=== PATIENT | male | born 1960 | race Caucasian/White ===

== ENCOUNTER 2024-06-26 23:59 | Inpatient (IN) | payer BC, OTHER ==
[2024-06-27] MEDS ORDERED: ACETAMINOPHEN INJECTION 100 ML ONE (01:40)
[2024-06-27] MEDS: ACETAMINOPHEN 1000 MG/100 ML BAG IVPB ONE (01:53)
[2024-06-27] MEDS: LACTATED RINGERS SOLUTION 1000 ML INFUS.BAG IV ONE ×3 (01:53→08:28)
[2024-06-27 02:25] LABS: BASO % 0.3 % (0-2.0); EOS % 3.3 % (0-4.5); HEMATOCRIT 25.7 % (35.4-49); HEMOGLOBIN 7.9 GM/dL (11.7-16.9); LYMPH % 8.1 % (8-40); MCH 25.8 pg (25.7-33.7); MCHC 30.8 g/dl (32.0-35.9); MEAN CELL VOLUME 83.6 fl (80-96); MEAN PLT VOLUME 7.4 fl (7.5-11.1); MONO % 2.1 % (3.8-10.2); NEUT % 86.2 % (42.8-82.8); PLATELET COUNT 641 10^3/uL (134-434); RBC 3.08 M/mm3 (4.00-5.60); RDW 17.4 % (11.9-15.9)
[2024-06-27 02:41] LABS: VENOUS BASE EXCESS 5.3 mmol/L (-2-2); VENOUS O2 SATURATION 51.9 % (70-80); VENOUS PCO2 47.4 mmHg (38-52); VENOUS PH 7.421 (7.310-7.410)
[2024-06-27 02:45] LABS: INR 1.48 (0.83-1.09); PROTHROMBIN TIME (PATIENT) 16.5 SEC (9.7-13.0)
[2024-06-27 02:48] LABS: ACTIVATED PTT 32.1 SECONDS (25.2-36.5)
[2024-06-27 02:53] LABS: POTASSIUM 4.2 mmol/L (3.5-5.1)
[2024-06-27 02:57] LABS: ALBUMIN 1.3 g/dl (3.4-5.0); BLOOD UREA NITROGEN 40.5 mg/dL (7-18); CALCIUM 8.3 mg/dL (8.5-10.1)
[2024-06-27 03:00] LABS: CREATININE 0.7 mg/dL (0.55-1.3)
[2024-06-27 03:02] LABS: BILIRUBIN,TOTAL 0.2 mg/dL (0.2-1); TOT PROT 5.5 g/dl (6.4-8.2)
[2024-06-27 06:40] LABS: BASO % 0.4 % (0-2.0); EOS % 2.8 % (0-4.5); HEMOGLOBIN 7.3 GM/dL (11.7-16.9); LYMPH % 11.6 % (8-40); MCH 25.8 pg (25.7-33.7); MCHC 30.5 g/dl (32.0-35.9); MEAN CELL VOLUME 84.6 fl (80-96); MEAN PLT VOLUME 7.8 fl (7.5-11.1); MONO % 2.6 % (3.8-10.2); NEUT % 82.6 % (42.8-82.8); PLATELET COUNT 558 10^3/uL (134-434); RBC 2.84 M/mm3 (4.00-5.60); RDW 17.3 % (11.9-15.9); WHITE BLOOD COUNT 14.2 K/mm3 (4.0-10.0)
[2024-06-27 06:44] LABS: EPI CELLS 10 /uL (0-25.1); HYALINE CASTS 3 /uL (0-3.1); PH,URINE 5.5 (5.0-8.0); URINE APPEARANCE CLEAR; URINE BACTERIA 8 /uL (0-1359); URINE BILIRUBIN NEGATIVE (NEGATIVE); URINE COLOR YELLOW; URINE GLUCOSE (UA) NEGATIVE (NEGATIVE); URINE KETONE NEGATIVE (NEGATIVE); URINE LEUK ESTERASE 1+ (NEGATIVE); URINE NITRITE NEGATIVE (NEGATIVE); URINE PROTEIN 1+ (NEGATIVE); URINE RBC 11 /uL (0-23.9); URINE UROBILINOGEN 0.2 mg/dL (0.2-1.0); URINE WBC 112 /uL (0-25.8)
[2024-06-27] MEDS ORDERED: PIPERACILLIN/TAZOB 3.375 GM 3.375 GM/50 ML BAG IVPB ONE (08:04)
[2024-06-27] MEDS: PIPERACILLIN/TAZOB 3.375 GM 3.375 GM in DEXTROSE 5%-WATER - 50 ML IVPB ONE (08:10)
[2024-06-27] MEDS ORDERED: VANCOMYCIN 1 GRAM (PRE-DOCKED) 1,000 MG/250 ML BAG IVPB ONE (08:11)
[2024-06-27] MEDS: VANCOMYCIN 1,000 MG in DEXTROSE 5%-WATER - 250 ML IVPB ONE (08:28)
[2024-06-27 09:50] LABS: YEAST NONE SEEN (NEGATIVE)
[2024-06-27] MEDS: SODIUM CHLORIDE 1,000 ML IV SCH (10:27)
[2024-06-27] MEDS ORDERED: COLLAGENASE CLOSTRIDIUM HIST. 30 GRAMS TUBE TP SCH (11:00)
[2024-06-27] MEDS: FLUDROCORTISONE ACETATE 0.1 MG TABLET (FP) PO SCH (12:30)
[2024-06-27] MEDS: ACETAMINOPHEN 325 MG TABLET (FP) PO PRN (17:05)
[2024-06-27] MEDS: HEPARIN NA (PORCINE) 5,000 UNITS/ML 1ML VIAL SQ SCH (17:46)
[2024-06-27 19:01] VITALS: BMI 18.8
[2024-06-27] MEDS: BACLOFEN 10 MG TABLET (FP) PO SCH (21:48)
[2024-06-28] MEDS: TAMSULOSIN HCL 0.4 MG CAP PO SCH (07:56)
[2024-06-28 08:28] LABS: BASO % 0.6 % (0-2.0); EOS % 1.5 % (0-4.5); HEMATOCRIT 26.5 % (35.4-49); HEMOGLOBIN 8.5 GM/dL (11.7-16.9); LYMPH % 10.4 % (8-40); MCH 26.4 pg (25.7-33.7); MEAN CELL VOLUME 82.5 fl (80-96); MEAN PLT VOLUME 7.5 fl (7.5-11.1); MONO % 2.7 % (3.8-10.2); NEUT % 84.8 % (42.8-82.8); PLATELET COUNT 532 10^3/uL (134-434); RBC 3.21 M/mm3 (4.00-5.60); RDW 16.7 % (11.9-15.9); WHITE BLOOD COUNT 14.9 K/mm3 (4.0-10.0)
[2024-06-28 08:36] LABS: POTASSIUM 3.4 mmol/L (3.5-5.1)
[2024-06-28 08:38] LABS: CALCIUM 7.7 mg/dL (8.5-10.1)
[2024-06-28 08:39] LABS: ALBUMIN 1.1 g/dl (3.4-5.0); BLOOD UREA NITROGEN 22.2 mg/dL (7-18)
[2024-06-28 08:42] LABS: CREATININE 0.5 mg/dL (0.55-1.3)
[2024-06-28 08:44] LABS: BILIRUBIN,TOTAL 0.4 mg/dL (0.2-1); TOT PROT 4.9 g/dl (6.4-8.2)
[2024-06-28] MEDS: MULTIVITAMINS (DAILY MVI) TABLET (FP) PO SCH (09:05)
[2024-06-28] MEDS: ESCITALOPRAM OXALATE 10 MG TABLET PO SCH (09:05)
[2024-06-28] MEDS: FOLIC ACID 1 MG TABLET (FP) PO SCH (09:12)
[2024-06-28] MEDS: PIPERACILLIN/TAZOB 3.375 GM 3.375 GM in DEXTROSE 5%-WATER - 50 ML IVPB SCH (14:54)
[2024-06-29 14:05] LABS: HEMATOCRIT 28.4 % (35.4-49); MCH 26.6 pg (25.7-33.7); MCHC 31.6 g/dl (32.0-35.9); MEAN CELL VOLUME 84.2 fl (80-96); MEAN PLT VOLUME 7.8 fl (7.5-11.1); PLATELET COUNT 449 10^3/uL (134-434); RBC 3.37 M/mm3 (4.00-5.60); RDW 16.9 % (11.9-15.9); WHITE BLOOD COUNT 10.1 K/mm3 (4.0-10.0)
[2024-06-29 14:41] LABS: POTASSIUM 3.4 mmol/L (3.5-5.1)
[2024-06-29 15:56] LABS: ALBUMIN 1.1 g/dl (3.4-5.0); CALCIUM 8.2 mg/dL (8.5-10.1)
[2024-06-29 15:58] LABS: BLOOD UREA NITROGEN 17.5 mg/dL (7-18)
[2024-06-29 16:00] LABS: CREATININE 0.5 mg/dL (0.55-1.3)
[2024-06-29 16:02] LABS: BILIRUBIN,TOTAL 0.4 mg/dL (0.2-1); TOT PROT 4.8 g/dl (6.4-8.2)
[2024-06-30 07:38] LABS: HEMATOCRIT 27.4 % (35.4-49); HEMOGLOBIN 8.6 GM/dL (11.7-16.9); MCH 26.7 pg (25.7-33.7); MCHC 31.5 g/dl (32.0-35.9); MEAN CELL VOLUME 84.7 fl (80-96); MEAN PLT VOLUME 7.3 fl (7.5-11.1); PLATELET COUNT 468 10^3/uL (134-434); RBC 3.23 M/mm3 (4.00-5.60); RDW 16.7 % (11.9-15.9); WHITE BLOOD COUNT 9.7 K/mm3 (4.0-10.0)
[2024-06-30 08:17] LABS: BLOOD UREA NITROGEN 16.7 mg/dL (7-18); CALCIUM 7.7 mg/dL (8.5-10.1)
[2024-06-30 08:19] LABS: ALBUMIN 1.1 g/dl (3.4-5.0)
[2024-06-30 08:21] LABS: CREATININE 0.5 mg/dL (0.55-1.3)
[2024-06-30 08:22] LABS: BILIRUBIN,TOTAL 0.4 mg/dL (0.2-1); TOT PROT 4.8 g/dl (6.4-8.2)
[2024-06-30] MEDS: POTASSIUM CHLORIDE ORAL LIQUID 20 MEQ/15 ML PO SCH (09:58)
[2024-06-30] MEDS: KCL 10 MEQ IVPB 10 MEQ/100 ML INFUS.BAG IVPB SCH (10:00)
[2024-06-30] MEDS ORDERED: PROPOFOL 20 ML ONE (11:55)
[2024-06-30] MEDS ORDERED: DEXAMETHASONE SOD PHOSPHATE 4 MG/1 ML VIAL ONE (11:55)
[2024-06-30] MEDS ORDERED: ROCURONIUM BROMIDE 50 MG/5 ML SYRINGE ONE (11:55)
[2024-06-30] MEDS ORDERED: MIDAZOLAM HCL 2 MG/2 ML SINGLE DOSE VIAL ONE (11:55)
[2024-06-30] MEDS ORDERED: ACETAMINOPHEN INJECTION 100 ML ONE (13:34)
[2024-06-30] MEDS ORDERED: ePHEDrine SULFATE 50 MG/1 ML AMPULE ONE (14:32)
[2024-06-30] MEDS ORDERED: NEOSTIGMINE METHYLSULFATE 0.5 MG/1 ML - 10 ML MDV ONE (14:47)
[2024-06-30] MEDS ORDERED: ACETAMINOPHEN 325 MG TABLET (FP) PO PRN (15:16)
[2024-06-30] MEDS ORDERED: SODIUM CHLORIDE 1,000 ML IV SCH (15:16)
[2024-06-30] MEDS ORDERED: PIPERACILLIN/TAZOB 3.375 GM 3.375 GM in DEXTROSE 5%-WATER - 50 ML IVPB SCH (18:00)
[2024-06-30] MEDS: PIPERACILLIN/TAZOB 3.375 GM 3.375 GM in DEXTROSE 5%-WATER - 50 ML IVPB SCH (18:19)
[2024-06-30] MEDS: SODIUM CHLORIDE 1,000 ML IV SCH (18:19)
[2024-06-30] MEDS: BACLOFEN 10 MG TABLET (FP) PO SCH (21:56)
[2024-06-30] MEDS: HEPARIN NA (PORCINE) 5,000 UNITS/ML 1ML VIAL SQ SCH (21:56)
[2024-06-30] MEDS ORDERED: POTASSIUM CHLORIDE ORAL LIQUID 20 MEQ/15 ML PO SCH (22:00)
[2024-06-30] MEDS ORDERED: BACLOFEN 10 MG TABLET (FP) PO SCH (22:00)
[2024-06-30] MEDS ORDERED: HEPARIN NA (PORCINE) 5,000 UNITS/ML 1ML VIAL SQ SCH (22:00)
[2024-07-01] MEDS: ACETAMINOPHEN 325 MG TABLET (FP) PO PRN ×2 (02:32→21:07)
[2024-07-01 07:26] LABS: HEMATOCRIT 25.6 % (35.4-49); HEMOGLOBIN 7.9 GM/dL (11.7-16.9); MCH 26.3 pg (25.7-33.7); MCHC 30.9 g/dl (32.0-35.9); MEAN CELL VOLUME 85.1 fl (80-96); MEAN PLT VOLUME 7.4 fl (7.5-11.1); PLATELET COUNT 472 10^3/uL (134-434); RBC 3.01 M/mm3 (4.00-5.60); RDW 16.6 % (11.9-15.9); WHITE BLOOD COUNT 6.8 K/mm3 (4.0-10.0)
[2024-07-01 07:57] LABS: ALBUMIN 1.1 g/dl (3.4-5.0); BLOOD UREA NITROGEN 18.4 mg/dL (7-18); CALCIUM 7.5 mg/dL (8.5-10.1)
[2024-07-01 08:00] LABS: CREATININE 0.6 mg/dL (0.55-1.3)
[2024-07-01 08:02] LABS: BILIRUBIN,TOTAL 0.3 mg/dL (0.2-1); TOT PROT 4.8 g/dl (6.4-8.2)
[2024-07-01] MEDS ORDERED: TAMSULOSIN HCL 0.4 MG CAP PO SCH (08:30)
[2024-07-01] MEDS: ESCITALOPRAM OXALATE 10 MG TABLET PO SCH (09:31)
[2024-07-01] MEDS: FOLIC ACID 1 MG TABLET (FP) PO SCH (09:31)
[2024-07-01] MEDS: MULTIVITAMINS (DAILY MVI) TABLET (FP) PO SCH (09:32)
[2024-07-01] MEDS: FLUDROCORTISONE ACETATE 0.1 MG TABLET (FP) PO SCH (09:32)
[2024-07-01] MEDS: TAMSULOSIN HCL 0.4 MG CAP PO SCH (09:32)
[2024-07-01] MEDS ORDERED: FOLIC ACID 1 MG TABLET (FP) PO SCH (10:00)
[2024-07-01] MEDS ORDERED: MULTIVITAMINS (DAILY MVI) TABLET (FP) PO SCH (10:00)
[2024-07-01] MEDS ORDERED: COLLAGENASE CLOSTRIDIUM HIST. 30 GRAMS TUBE TP SCH (10:00)
[2024-07-01] MEDS ORDERED: FLUDROCORTISONE ACETATE 0.1 MG TABLET (FP) PO SCH (10:00)
[2024-07-01] MEDS ORDERED: ESCITALOPRAM OXALATE 10 MG TABLET PO SCH (10:00)
[2024-07-01] MEDS: SODIUM CHLORIDE 1,000 ML IV SCH (12:00)
[2024-07-01] MEDS: PIPERACILLIN/TAZOB 3.375 GM 50 ML IVPB SCH (17:33)
[2024-07-01] MEDS ORDERED: PIPERACILLIN/TAZOB 3.375 GM 50 ML IVPB SCH (18:00)
[2024-07-01] MEDS ORDERED: PIPERACILLIN/TAZOB 3.375 GM 3.375 GM in DEXTROSE 5%-WATER - 50 ML IVPB SCH (18:00)
[2024-07-01] MEDS: HEPARIN NA (PORCINE) 5,000 UNITS/ML 1ML VIAL SQ SCH (21:07)
[2024-07-01] MEDS: BACLOFEN 10 MG TABLET (FP) PO SCH (21:07)
[2024-07-02 07:43] LABS: HEMATOCRIT 23.2 % (35.4-49); HEMOGLOBIN 7.4 GM/dL (11.7-16.9); MCH 26.9 pg (25.7-33.7); MCHC 31.7 g/dl (32.0-35.9); MEAN CELL VOLUME 84.7 fl (80-96); MEAN PLT VOLUME 7.1 fl (7.5-11.1); PLATELET COUNT 398 10^3/uL (134-434); RBC 2.73 M/mm3 (4.00-5.60); RDW 17.1 % (11.9-15.9); WHITE BLOOD COUNT 7.5 K/mm3 (4.0-10.0)
[2024-07-02 08:13] LABS: POTASSIUM 3.3 mmol/L (3.5-5.1)
[2024-07-02 08:42] LABS: ALBUMIN 1.1 g/dl (3.4-5.0); BLOOD UREA NITROGEN 18.5 mg/dL (7-18)
[2024-07-02 08:43] LABS: CALCIUM 7.7 mg/dL (8.5-10.1)
[2024-07-02 08:46] LABS: CREATININE 0.4 mg/dL (0.55-1.3)
[2024-07-02 08:47] LABS: BILIRUBIN,TOTAL 0.2 mg/dL (0.2-1)
[2024-07-02 08:49] LABS: TOT PROT 4.2 g/dl (6.4-8.2)
[2024-07-02] MEDS: FLUDROCORTISONE ACETATE 0.1 MG TABLET (FP) PO SCH (09:24)
[2024-07-02] MEDS: FOLIC ACID 1 MG TABLET (FP) PO SCH (09:25)
[2024-07-02] MEDS: MULTIVITAMINS (DAILY MVI) TABLET (FP) PO SCH (09:25)
[2024-07-02] MEDS: TAMSULOSIN HCL 0.4 MG CAP PO SCH (09:25)
[2024-07-02] MEDS: ESCITALOPRAM OXALATE 10 MG TABLET PO SCH (09:26)
[2024-07-02] MEDS: SODIUM CHLORIDE 250 ML IV STA (09:26)
[2024-07-02] MEDS: POTASSIUM CHLORIDE ORAL LIQUID 20 MEQ/15 ML PO ONE (17:26)
[2024-07-02 18:36] VITALS: RESP 20
[2024-07-03 09:17] LABS: HEMATOCRIT 28.4 % (35.4-49); HEMOGLOBIN 9.1 GM/dL (11.7-16.9); MCH 26.9 pg (25.7-33.7); MCHC 31.9 g/dl (32.0-35.9); MEAN CELL VOLUME 84.4 fl (80-96); MEAN PLT VOLUME 7.2 fl (7.5-11.1); PLATELET COUNT 430 10^3/uL (134-434); RBC 3.37 M/mm3 (4.00-5.60); RDW 17.7 % (11.9-15.9); WHITE BLOOD COUNT 7.6 K/mm3 (4.0-10.0)
[2024-07-03 09:53] LABS: POTASSIUM 3.6 mmol/L (3.5-5.1)
[2024-07-03 10:19] LABS: CALCIUM 7.8 mg/dL (8.5-10.1)
[2024-07-03 10:20] LABS: ALBUMIN 1.3 g/dl (3.4-5.0); BLOOD UREA NITROGEN 12.4 mg/dL (7-18)
[2024-07-03 10:23] LABS: BILIRUBIN,TOTAL 0.3 mg/dL (0.2-1); CREATININE 0.5 mg/dL (0.55-1.3); TOT PROT 4.9 g/dl (6.4-8.2)
[2024-07-03 15:53] VITALS: BP 111/62; PULSE 106; TEMP 97.3
== END 2024-07-03 16:13 | DRG 854 ==
LOC: JER 23:59 → JERBED 06-27 06:56 → J4W 06-27 09:30
PROVIDERS: ADMIT Internal Medicine; ATTEND Internal Medicine
PROC: 0KBP0ZZ Excision of Left Hip Muscle, Open Approach (ICD-10-PCS; principal; 2024-06-29)
PROC: 0KBN0ZZ Excision of Right Hip Muscle, Open Approach (ICD-10-PCS; 2024-06-29)
DX: A41.89 Other specified sepsis (principal); L02.511 Cutaneous abscess of right hand; R25.2 Cramp and spasm; D64.9 Anemia, unspecified; E11.9 Type 2 diabetes mellitus without complications; N40.0 Benign prostatic hyperplasia without lower urinary tract symptoms; F32.A Depression, unspecified; K74.60 Unspecified cirrhosis of liver; M24.542 Contracture, left hand; M24.541 Contracture, right hand; I44.4 Left anterior fascicular block; R00.0 Tachycardia, unspecified; D72.829 Elevated white blood cell count, unspecified; L89.150 Pressure ulcer of sacral region, unstageable; L89.100 Pressure ulcer of unspecified part of back, unstageable; L89.520 Pressure ulcer of left ankle, unstageable; M24.69 Ankylosis, other specified joint; E87.6 Hypokalemia; B35.1 Tinea unguium; L08.9 Local infection of the skin and subcutaneous tissue, unspecified; B96.1 Klebsiella pneumoniae [K. pneumoniae] as the cause of diseases classified elsewhere; B95.2 Enterococcus as the cause of diseases classified elsewhere; Z74.01 Bed confinement status
CPT/HCPCS: 0241U-QW; 36415; 36430; 71045-TC-FY; 73130-TC-LT-FY; 73130-TC-RT-FY; 80053; 81003; 82272; 82550; 82803; 82977; 83605; 84439; 84443; 84484; 85025; 85027; 85610; 85651; 85730; 86140; 86200; 86431; 86850; 86900; 86901; 86922; 87040; 87070; 87086; 87186; 87205; 88304-TC; 93005; 93010; 93306-TC; 94760; 99285-25; J0131; J0475; J1644; P9058

== ENCOUNTER 2024-08-04 03:13 | Inpatient (IN) | payer BC, OTHER ==
[2024-08-04 03:50] LABS: BASO % 0.3 % (0-2.0); EOS % 0.3 % (0-4.5); HEMATOCRIT 27.3 % (35.4-49); HEMOGLOBIN 8.3 GM/dL (11.7-16.9); LYMPH % 25.1 % (8-40); MCH 25.1 pg (25.7-33.7); MCHC 30.5 g/dl (32.0-35.9); MEAN CELL VOLUME 82.2 fl (80-96); MEAN PLT VOLUME 7.9 fl (7.5-11.1); MONO % 2.4 % (3.8-10.2); NEUT % 71.9 % (42.8-82.8); PLATELET COUNT 772 10^3/uL (134-434); RBC 3.32 M/mm3 (4.00-5.60); RDW 18.1 % (11.9-15.9); WHITE BLOOD COUNT 27.2 K/mm3 (4.0-10.0)
[2024-08-04] MEDS ORDERED: PIPERACILLIN/TAZOB 4.5 GM 4.5 GM/100 ML BAG IVPB ONE ×2 (03:58→10:27)
[2024-08-04 03:59] LABS: INR 1.7 (0.83-1.09); PROTHROMBIN TIME (PATIENT) 19.3 SEC (9.7-13.0)
[2024-08-04 04:02] LABS: VENOUS BASE EXCESS -3.3 mmol/L (-2-2); VENOUS O2 SATURATION 75.5 % (70-80); VENOUS PCO2 51.1 mmHg (38-52); VENOUS PH 7.278 (7.310-7.410)
[2024-08-04 04:02] LABS: ACTIVATED PTT 32.6 SECONDS (25.2-36.5)
[2024-08-04 04:09] LABS: CHLORIDE 109 mmol/L (98-107); SODIUM 142 mmol/L (136-145)
[2024-08-04 04:11] LABS: CALCIUM 8.5 mg/dL (8.5-10.1)
[2024-08-04 04:12] LABS: ALBUMIN 1.1 g/dl (3.4-5.0); CO2 24 mmol/L (21-32); GLUCOSE,RANDOM 110 mg/dL (74-106)
[2024-08-04] MEDS: LACTATED RINGERS SOLUTION 1000 ML INFUS.BAG IV ONE ×4 (04:12→10:41)
[2024-08-04] MEDS: PIPERACILLIN/TAZOB 4.5 GM 4.5 GM in DEXTROSE 5%-WATER 100 ML IVPB ONE (04:12)
[2024-08-04] MEDS ORDERED: ACETAMINOPHEN INJECTION 100 ML ONE ×2 (04:13→12:58)
[2024-08-04 04:15] LABS: CREATININE 1.3 mg/dL (0.55-1.3); SGOT/AST 46 U/L (15-37); SGPT/ALT 12 U/L (13-61)
[2024-08-04 04:17] LABS: BILIRUBIN,TOTAL 0.5 mg/dL (0.2-1); TOT PROT 6.4 g/dl (6.4-8.2)
[2024-08-04 04:19] LABS: ALK PHOS 316 U/L (45-117)
[2024-08-04] MEDS: ACETAMINOPHEN 1000 MG/100 ML BAG IVPB ONE ×2 (04:25→13:00)
[2024-08-04 04:27] LABS: ANION GAP 9 mmol/L (4-13); POTASSIUM 6.2 mmol/L (3.5-5.1)
[2024-08-04 04:28] LABS: LACTIC ACID 8.2 mmol/L (0.4-2.0)
[2024-08-04] MEDS ORDERED: NOREPINEPHRINE BITARTRATE 4 MG/4 ML ML IV ONE (05:47)
[2024-08-04] MEDS: NOREPINEPHRINE BITARTRATE 4,000 MCG in DEXTROSE 5%-WATER - 496 ML IV SCH (06:02)
[2024-08-04 06:40] LABS: POTASSIUM 4.3 mmol/L (3.5-5.1)
[2024-08-04 06:42] LABS: BLOOD UREA NITROGEN 30.5 mg/dL (7-18); CALCIUM 7.3 mg/dL (8.5-10.1)
[2024-08-04 06:45] LABS: CREATININE 1.2 mg/dL (0.55-1.3)
[2024-08-04 08:16] LABS: EPI CELLS 11 /uL (0-25.1); HYALINE CASTS 1 /uL (0-3.1); PH,URINE 5.5 (5.0-8.0); URINE APPEARANCE TURBID; URINE BACTERIA 24 /uL (0-1359); URINE BILIRUBIN NEGATIVE (NEGATIVE); URINE COLOR YELLOW; URINE GLUCOSE (UA) NEGATIVE (NEGATIVE); URINE KETONE NEGATIVE (NEGATIVE); URINE LEUK ESTERASE 3+ (NEGATIVE); URINE NITRITE NEGATIVE (NEGATIVE); URINE PROTEIN 2+ (NEGATIVE); URINE UROBILINOGEN 0.2 mg/dL (0.2-1.0); URINE WBC 2777 /uL (0-25.8)
[2024-08-04] MEDS: PIPERACILLIN/TAZOB 4.5 GM 4.5 GM in DEXTROSE 5%-WATER 100 ML IVPB SCH ×2 (10:40→15:00)
[2024-08-04] MEDS: PHENTOLAMINE MESYLATE 5 MG/2 ML VIAL IVPUSH ONE (10:41)
[2024-08-04] MEDS: SODIUM CHLORIDE 0.9% 500 ML INFUS.BAG IV ONE (10:41)
[2024-08-04] MEDS ORDERED: HEPARIN NA (PORCINE) 5,000 UNITS/ML 1ML VIAL ONE (10:59)
[2024-08-04] MEDS ORDERED: VANCOMYCIN 1 GRAM (PRE-DOCKED) 1,000 MG/250 ML BAG IVPB ONE (11:00)
[2024-08-04] MEDS: VANCOMYCIN 1,000 MG in DEXTROSE 5%-WATER - 250 ML IVPB ONE (11:14)
[2024-08-04] MEDS: HEPARIN NA (PORCINE) 5,000 UNITS/ML 1ML VIAL SQ SCH (11:15)
[2024-08-04] MEDS ORDERED: DEXTROSE 50%-WATER 25 GM/50 ML DISP.SYRIN ONE (12:58)
[2024-08-04] MEDS: NOREPINEPHRINE 0.9 % NACL 8 MG/250 ML BAG IVPB SCH (13:30)
[2024-08-04] MEDS: VASopressin 40 UNITS/100 ML BAG IV SCH (14:46)
[2024-08-04] MEDS: LACTATED RINGERS SOLUTION 1,000 ML/1,000 ML INFUS.BAG IV SCH (14:47)
[2024-08-04 16:15] LABS: MAGNESIUM 1.8 mg/dL (1.8-2.4)
[2024-08-04 16:19] LABS: PHOSPHOROUS 3.8 mg/dL (2.5-4.9)
[2024-08-04] MEDS: MIDAZOLAM HCL 2 MG/2 ML SINGLE DOSE VIAL IVPUSH ONE (18:18)
[2024-08-04] MEDS: FLUDROCORTISONE ACETATE 0.1 MG TABLET (FP) PO SCH (18:56)
[2024-08-04] MEDS: LACTATED RINGERS SOLUTION 1,000 ML/1,000 ML INFUS.BAG IV STA (21:40)
[2024-08-04] MEDS: CHLORHEXIDINE GLUCONATE 4% CLEANSER FOR DECOLONIZATION TP SCH (21:41)
[2024-08-04] MEDS: MAGNESIUM SULF 50% (8.12 MEQ/2 ML-1 GM VIAL) IVPB ONE (21:43)
[2024-08-04 23:20] LABS: LACTIC ACID 3.8 mmol/L (0.4-2.0)
[2024-08-05] MEDS: PIPERACILLIN/TAZOB 4.5 GM 4.5 GM/100 ML BAG IVPB SCH (01:48)
[2024-08-05] MEDS: ACETAMINOPHEN 1000 MG/100 ML BAG IVPB ONE ×2 (06:43→09:18)
[2024-08-05] MEDS: LACTATED RINGERS SOLUTION 1,000 ML/1,000 ML INFUS.BAG IV STA (07:00)
[2024-08-05 07:15] LABS: ARTERIAL BLD GAS O2 SATURATION 98.7 % (95-98); ARTERIAL BLOOD GAS BASE EXCESS -1.2 mmol/L (-2-2); ARTERIAL BLOOD GAS pH 7.424 (7.350-7.450)
[2024-08-05 07:19] LABS: ALLENS TEST POSITIVE
[2024-08-05 07:49] LABS: HEMATOCRIT 20.1 % (35.4-49); MCH 24.3 pg (25.7-33.7); MCHC 29.7 g/dl (32.0-35.9); MEAN CELL VOLUME 81.6 fl (80-96); MEAN PLT VOLUME 7.8 fl (7.5-11.1); PLATELET COUNT 513 10^3/uL (134-434); RBC 2.47 M/mm3 (4.00-5.60); RDW 17.8 % (11.9-15.9)
[2024-08-05] MEDS ORDERED: INSULIN REGULAR HUMAN 100 UNITS/ML *VIAL ONE (07:53)
[2024-08-05 08:00] LABS: WHITE BLOOD COUNT 31.9 K/mm3 (4.0-10.0)
[2024-08-05 08:10] LABS: CHLORIDE 107 mmol/L (98-107); SODIUM 142 mmol/L (136-145)
[2024-08-05 08:26] LABS: ANION GAP 10 mmol/L (4-13); CO2 24 mmol/L (21-32)
[2024-08-05 08:27] LABS: BLOOD UREA NITROGEN 39.8 mg/dL (7-18); GLUCOSE,RANDOM 114 mg/dL (74-106); MAGNESIUM 1.9 mg/dL (1.8-2.4)
[2024-08-05 08:29] LABS: SGOT/AST 23 U/L (15-37); SGPT/ALT 15 U/L (13-61)
[2024-08-05 08:30] LABS: ALBUMIN 0.7 g/dl (3.4-5.0); CALCIUM 6.8 mg/dL (8.5-10.1); CREATININE 1.3 mg/dL (0.55-1.3); PHOSPHOROUS 4.4 mg/dL (2.5-4.9)
[2024-08-05 08:31] LABS: BILIRUBIN,TOTAL 0.3 mg/dL (0.2-1)
[2024-08-05 08:38] LABS: ALK PHOS 166 U/L (45-117)
[2024-08-05] MEDS: GENTAMICIN INJECTION 120 MG in SODIUM CHLORIDE 100 ML IVPB ONE (09:21)
[2024-08-05] MEDS: HYDROCORTISONE SOD SUCCINATE 100 MG/2 ML VIAL IVPUSH SCH (09:33)
[2024-08-05] MEDS: PANTOPRAZOLE SODIUM 40 MG VIAL IVPUSH SCH (09:34)
[2024-08-05 09:36] LABS: ANISOCYTOSIS 0; HELMET CELLS 0; HOWELL-JOLLY BODIES 0; MACROCYTOSIS 0; OVALOCYTE 0; ROULEAU 0; SICKELED CELLS 0; TARGET CELLS 0; TEAR DROP CELLS 0; TOXIC GRANULATION 0
[2024-08-05] MEDS: VANCOMYCIN/WATER FOR INJ (PEG) 1,000 MG/200 ML BAG IVPB SCH (12:43)
[2024-08-05] MEDS: MAGNESIUM 2GM/50ML STERILE WATER IVPB IVPB ONE (14:02)
[2024-08-05 15:00] LABS: GAMMA GLUTAMYL TRANSPEPTIDASE 136 U/L (5-85)
[2024-08-05 15:04] LABS: IRON SERUM 13 ug/dL (50-175)
[2024-08-05 15:05] LABS: TOTAL IRON BINDING CAPACITY 40 ug/dL (250-450)
[2024-08-06] MEDS: VANCOMYCIN/WATER FOR INJ (PEG) 1,000 MG/200 ML BAG IVPB SCH (00:10)
[2024-08-06] MEDS ORDERED: ACETAMINOPHEN 1000 MG/100 ML BAG IVPB PRN (06:28)
[2024-08-06 07:19] LABS: POTASSIUM 3.3 mmol/L (3.5-5.1)
[2024-08-06 07:21] LABS: ALBUMIN 0.8 g/dl (3.4-5.0); CALCIUM 7.2 mg/dL (8.5-10.1); HEMATOCRIT 29.1 % (35.4-49); HEMOGLOBIN 9.1 GM/dL (11.7-16.9); MCH 26.3 pg (25.7-33.7); MCHC 31.2 g/dl (32.0-35.9); MEAN CELL VOLUME 84.3 fl (80-96); MEAN PLT VOLUME 7.7 fl (7.5-11.1); PLATELET COUNT 388 10^3/uL (134-434); RBC 3.45 M/mm3 (4.00-5.60); WHITE BLOOD COUNT 28.2 K/mm3 (4.0-10.0)
[2024-08-06 07:22] LABS: BLOOD UREA NITROGEN 40.5 mg/dL (7-18); MAGNESIUM 2.1 mg/dL (1.8-2.4)
[2024-08-06 07:25] LABS: CREATININE 1.1 mg/dL (0.55-1.3); PHOSPHOROUS 4.3 mg/dL (2.5-4.9)
[2024-08-06 07:26] LABS: BILIRUBIN,TOTAL 0.5 mg/dL (0.2-1); TOT PROT 4.4 g/dl (6.4-8.2)
[2024-08-06] MEDS: KCL 10 MEQ IVPB 10 MEQ/100 ML INFUS.BAG IVPB SCH (09:17)
[2024-08-06] MEDS: LACTATED RINGERS SOLUTION 1,000 ML/1,000 ML INFUS.BAG IV STA (11:41)
[2024-08-06 14:39] VITALS: BMI 19.6
[2024-08-06] MEDS: SODIUM CHLORIDE 0.9%/KCL 20 MEQ/1,000 ML INFUS.BAG IV SCH (15:42)
[2024-08-06] MEDS ORDERED: VASopressin 20 UNITS/ML VIAL IV ONE (17:31)
[2024-08-07 07:54] LABS: HEMATOCRIT 28.3 % (35.4-49); HEMOGLOBIN 8.9 GM/dL (11.7-16.9); MCH 26.4 pg (25.7-33.7); MCHC 31.4 g/dl (32.0-35.9); MEAN CELL VOLUME 84.1 fl (80-96); MEAN PLT VOLUME 7.8 fl (7.5-11.1); PLATELET COUNT 251 10^3/uL (134-434); RBC 3.37 M/mm3 (4.00-5.60); RDW 17.2 % (11.9-15.9); WHITE BLOOD COUNT 24.7 K/mm3 (4.0-10.0)
[2024-08-07 08:05] LABS: CHLORIDE 110 mmol/L (98-107); SODIUM 143 mmol/L (136-145)
[2024-08-07 08:09] LABS: POTASSIUM 2.9 mmol/L (3.5-5.1)
[2024-08-07 08:10] LABS: INR 1.56 (0.83-1.09); PROTHROMBIN TIME (PATIENT) 17.7 SEC (9.7-13.0)
[2024-08-07 08:19] LABS: ALBUMIN 0.8 g/dl (3.4-5.0); CALCIUM 7.4 mg/dL (8.5-10.1)
[2024-08-07 08:20] LABS: ANION GAP 9 mmol/L (4-13); BLOOD UREA NITROGEN 40.7 mg/dL (7-18); CO2 23 mmol/L (21-32); GLUCOSE,RANDOM 152 mg/dL (74-106); MAGNESIUM 1.8 mg/dL (1.8-2.4)
[2024-08-07 08:22] LABS: SGOT/AST 16 U/L (15-37); SGPT/ALT 16 U/L (13-61)
[2024-08-07 08:23] LABS: PHOSPHOROUS 3.4 mg/dL (2.5-4.9)
[2024-08-07 08:24] LABS: BILIRUBIN,TOTAL 0.4 mg/dL (0.2-1); TOT PROT 4.2 g/dl (6.4-8.2)
[2024-08-07 08:25] LABS: ALK PHOS 165 U/L (45-117)
[2024-08-07] MEDS: KCL 10 MEQ IVPB 10 MEQ/100 ML INFUS.BAG IVPB SCH ×3 (08:41→23:48)
[2024-08-07 10:01] LABS: ANISOCYTOSIS 1+; MACROCYTOSIS 1+
[2024-08-07] MEDS: THIAMINE HCL 200 MG/2 ML VIAL IVPB SCH (18:14)
[2024-08-07] MEDS: AMINO ACIDS 4.25%/D5W 1,000 ML IV SCH (19:33)
[2024-08-07 22:09] LABS: POTASSIUM 3.3 mmol/L (3.5-5.1)
[2024-08-07 22:11] LABS: CALCIUM 7.3 mg/dL (8.5-10.1)
[2024-08-07 22:12] LABS: ALBUMIN 0.8 g/dl (3.4-5.0); BLOOD UREA NITROGEN 35.9 mg/dL (7-18); MAGNESIUM 1.7 mg/dL (1.8-2.4)
[2024-08-07 22:15] LABS: CREATININE 0.9 mg/dL (0.55-1.3); PHOSPHOROUS 3.4 mg/dL (2.5-4.9)
[2024-08-07 22:16] LABS: BILIRUBIN,TOTAL 0.4 mg/dL (0.2-1); TOT PROT 4.2 g/dl (6.4-8.2)
[2024-08-07] MEDS: MAGNESIUM SULFATE IN WATER 2 GM/50 ML IVPB IVPB ONE (23:47)
[2024-08-08 08:21] LABS: HEMATOCRIT 28.2 % (35.4-49); HEMOGLOBIN 8.8 GM/dL (11.7-16.9); MCH 26.1 pg (25.7-33.7); MCHC 31.3 g/dl (32.0-35.9); MEAN CELL VOLUME 83.3 fl (80-96); MEAN PLT VOLUME 7.9 fl (7.5-11.1); PLATELET COUNT 162 10^3/uL (134-434); RBC 3.38 M/mm3 (4.00-5.60); RDW 17.7 % (11.9-15.9); WHITE BLOOD COUNT 18.3 K/mm3 (4.0-10.0)
[2024-08-08 08:26] LABS: INR 1.5 (0.83-1.09); PROTHROMBIN TIME (PATIENT) 16.7 SEC (9.7-13.0)
[2024-08-08 08:37] LABS: POTASSIUM 3.2 mmol/L (3.5-5.1)
[2024-08-08 08:41] LABS: ALBUMIN 0.9 g/dl (3.4-5.0)
[2024-08-08 08:43] LABS: CALCIUM 7.5 mg/dL (8.5-10.1)
[2024-08-08 08:44] LABS: BLOOD UREA NITROGEN 38.9 mg/dL (7-18)
[2024-08-08 08:45] LABS: CREATININE 0.8 mg/dL (0.55-1.3); PHOSPHOROUS 3.1 mg/dL (2.5-4.9)
[2024-08-08 08:46] LABS: BILIRUBIN,TOTAL 0.2 mg/dL (0.2-1); TOT PROT 4.2 g/dl (6.4-8.2)
[2024-08-08 09:52] LABS: ANISOCYTOSIS 0; HELMET CELLS 0; HOWELL-JOLLY BODIES 0; MACROCYTOSIS 0; OVALOCYTE 0; ROULEAU 0; SICKELED CELLS 0; TARGET CELLS 0; TEAR DROP CELLS 0; TOXIC GRANULATION 0
[2024-08-08] MEDS: KCL 20 MEQ PREMIX BAG 20 MEQ/100 ML INFUS.BAG IVPB SCH (10:30)
[2024-08-08] MEDS ORDERED: PROPOFOL 20 ML ONE (13:44)
[2024-08-08] MEDS ORDERED: LIDOCAINE HCL/PF 2% SDV 5ML VIAL ONE (13:44)
[2024-08-08] MEDS ORDERED: DEXAMETHASONE SOD PHOSPHATE 4 MG/1 ML VIAL ONE (13:44)
[2024-08-08] MEDS ORDERED: ONDANSETRON 4 MG/2 ML VIAL ONE (13:44)
[2024-08-08] MEDS ORDERED: ROCURONIUM BROMIDE 50 MG/5 ML SYRINGE ONE (13:45)
[2024-08-08] MEDS ORDERED: MIDAZOLAM HCL 2 MG/2 ML SINGLE DOSE VIAL ONE (14:39)
[2024-08-08] MEDS ORDERED: ENALAPRILAT DIHYDRATE 2.5 MG/2 ML VIAL IVPB ONE (14:46)
[2024-08-08] MEDS ORDERED: VASopressin 20 UNITS/ML VIAL IV ONE ×2 (15:01→15:03)
[2024-08-08] MEDS ORDERED: PHENYLEPHRINE HCL 10 MG/1 ML SINGLE DOSE VIAL ONE (15:16)
[2024-08-08] MEDS ORDERED: PROPOFOL 1,000,000 MCG/100 ML VIAL ONE (18:24)
[2024-08-08 21:51] LABS: HEMATOCRIT 32.3 % (35.4-49); HEMOGLOBIN 10.2 GM/dL (11.7-16.9); MCH 26.7 pg (25.7-33.7); MCHC 31.7 g/dl (32.0-35.9); MEAN CELL VOLUME 84.3 fl (80-96); MEAN PLT VOLUME 7.6 fl (7.5-11.1); PLATELET COUNT 102 10^3/uL (134-434); RBC 3.83 M/mm3 (4.00-5.60); RDW 17.1 % (11.9-15.9); WHITE BLOOD COUNT 15.7 K/mm3 (4.0-10.0)
[2024-08-09 07:36] LABS: HEMATOCRIT 25.9 % (35.4-49); HEMOGLOBIN 8.3 GM/dL (11.7-16.9); MCH 26.8 pg (25.7-33.7); MEAN CELL VOLUME 83.7 fl (80-96); MEAN PLT VOLUME 8.6 fl (7.5-11.1); PLATELET COUNT 82 10^3/uL (134-434); RBC 3.09 M/mm3 (4.00-5.60); RDW 16.4 % (11.9-15.9); WHITE BLOOD COUNT 11.2 K/mm3 (4.0-10.0)
[2024-08-09 07:56] LABS: POTASSIUM 3.2 mmol/L (3.5-5.1)
[2024-08-09 08:02] LABS: ALBUMIN 0.8 g/dl (3.4-5.0); CALCIUM 7.5 mg/dL (8.5-10.1)
[2024-08-09 08:03] LABS: BLOOD UREA NITROGEN 36.9 mg/dL (7-18); MAGNESIUM 1.7 mg/dL (1.8-2.4)
[2024-08-09 08:06] LABS: BILIRUBIN,TOTAL 0.4 mg/dL (0.2-1); CREATININE 0.6 mg/dL (0.55-1.3); PHOSPHOROUS 2.7 mg/dL (2.5-4.9); TOT PROT 3.6 g/dl (6.4-8.2)
[2024-08-09 08:43] LABS: ANISOCYTOSIS 0; MACROCYTOSIS 0; TARGET CELLS 1+
[2024-08-09] MEDS: HYDROmorphone HCl 2 MG/ML VIAL IVPUSH PRN (10:31)
[2024-08-09] MEDS: KCL 20 MEQ PREMIX BAG 20 MEQ/100 ML INFUS.BAG IVPB SCH (11:23)
[2024-08-09] MEDS: MORPHINE 100mg/NS INFUSION 100 MG/100 ML MG IVPB SCH (18:19)
[2024-08-09] MEDS ORDERED: HYDROmorphone HCl 2 MG/ML VIAL IVPUSH PRN (19:21)
[2024-08-10 07:06] LABS: HEMATOCRIT 19.9 % (35.4-49); MCH 26.9 pg (25.7-33.7); MCHC 30.2 g/dl (32.0-35.9); MEAN CELL VOLUME 88.9 fl (80-96); MEAN PLT VOLUME 8.9 fl (7.5-11.1); PLATELET COUNT 142 10^3/uL (134-434); RBC 2.24 M/mm3 (4.00-5.60); RDW 16.9 % (11.9-15.9); WHITE BLOOD COUNT 26.6 K/mm3 (4.0-10.0)
[2024-08-10 07:17] VITALS: BP 61/37; TEMP 97.3
[2024-08-10 07:20] LABS: POTASSIUM 4.2 mmol/L (3.5-5.1)
[2024-08-10 07:27] LABS: BLOOD UREA NITROGEN 42.6 mg/dL (7-18)
[2024-08-10 07:28] LABS: MAGNESIUM 1.6 mg/dL (1.8-2.4)
[2024-08-10 07:31] LABS: PHOSPHOROUS 4.7 mg/dL (2.5-4.9)
[2024-08-10 08:09] VITALS: PULSE 106
[2024-08-10 09:19] VITALS: RESP 8
[2024-08-10] MEDS ORDERED: LORazepam 2 MG/ML SDV VIAL IVPUSH PRN (09:33)
== END 2024-08-10 09:42 | disposition expired | DRG 853 ==
LOC: JER 03:13 → JERBED 07:10 → JICU 11:41
PROVIDERS: ADMIT Internal Medicine Pulmonary Disease; ATTEND Internal Medicine Pulmonary Disease
PROC: 4A133B1 Monitoring of Arterial Pressure, Peripheral, Percutaneous Approach (ICD-10-PCS; 2024-08-04)
PROC: 4A133J1 Monitoring of Arterial Pulse, Peripheral, Percutaneous Approach (ICD-10-PCS; 2024-08-04)
PROC: 05HM33Z Insertion of Infusion Device into Right Internal Jugular Vein, Percutaneous Approach (ICD-10-PCS; 2024-08-04)
PROC: 30233N1 Transfusion of Nonautologous Red Blood Cells into Peripheral Vein, Percutaneous Approach (ICD-10-PCS; 2024-08-05)
PROC: 4A133B1 Monitoring of Arterial Pressure, Peripheral, Percutaneous Approach (ICD-10-PCS; 2024-08-06)
PROC: 4A133J1 Monitoring of Arterial Pulse, Peripheral, Percutaneous Approach (ICD-10-PCS; 2024-08-06)
PROC: 0KBN0ZZ Excision of Right Hip Muscle, Open Approach (ICD-10-PCS; 2024-08-08)
PROC: 0JNL0ZZ Release Right Upper Leg Subcutaneous Tissue and Fascia, Open Approach (ICD-10-PCS; principal; 2024-08-08 13:00)
DX: A41.9 Sepsis, unspecified organism (principal); J18.9 Pneumonia, unspecified organism; L89.214 Pressure ulcer of right hip, stage 4; J96.01 Acute respiratory failure with hypoxia; L89.154 Pressure ulcer of sacral region, stage 4; R65.21 Severe sepsis with septic shock; E87.20 Acidosis, unspecified; N17.9 Acute kidney failure, unspecified; D62 Acute posthemorrhagic anemia; K92.2 Gastrointestinal hemorrhage, unspecified; E46 Unspecified protein-calorie malnutrition; R64 Cachexia; N39.0 Urinary tract infection, site not specified; I10 Essential (primary) hypertension; E11.9 Type 2 diabetes mellitus without complications; R74.01 Elevation of levels of liver transaminase levels; N40.0 Benign prostatic hyperplasia without lower urinary tract symptoms
CPT/HCPCS: 0241U-QW; 36415; 36430; 36600; 71045-TC-FY; 74018-TC-FY; 76700-TC; 80048; 80053; 81003; 82272; 82728; 82803; 82962; 82977; 83540; 83550; 83605; 83735; 84100; 84484; 85025; 85027; 85610; 85730; 86704; 86803; 86850; 86900; 86901; 86922; 87040; 87070; 87076; 87077; 87086; 87186; 87205; 87324; 87340; 87449; 87481; 87493; 87517; 88304-TC; 93005; 93010; 94660; 99291; J0131; J1644; J3490; P9058